=== PATIENT | female | born 1955 | race Two or more races ===

== ENCOUNTER → 2025-07-24 | Outpatient (CLI) | payer MEDICARE, BC, SELFPAY ==
--- NOTE | 2025-07-24 14:30 | XR_ITS ---
Examination: Bone densitometry Date and time of exam: July 24, 2025, 1440 hours INDICATIONS: Hysterectomy age 41 right hip replacement 2014 levothyroxine 10 years Technique: Lumbar spine and hip total bone mineralization values of an calculated. Peak reference and age match control results have been displayed. Findings: Lumbar spine total bone mineralization is 0.943 gm/cm2. This is 0.9 standard deviations below peak reference. This is 1.1 standard deviations above age-matched controls. Hip total bone mineralization is 0.914 gm/cm2 This is 0.2 standard deviations below peak reference. This is 1.2 standard deviations above age-matched controls Impression: There is normal mineralization based on lumbar spine measurements. There is osteopenia based on hip measurements
== END | disposition home or self-care (01) ==
PROVIDERS: PCP Specialist; Referring Provider Specialist; Visit Provider Specialist
DX: M85.88 Other specified disorders of bone density and structure, other site (principal)
CPT/HCPCS: 77080